=== PATIENT | female | born 1970 | race American Indian/Alaskan Native ===

== ENCOUNTER 2017-02-15 22:52 | Emergency (ER) | payer SELFPAY ==
[2017-02-16] MEDS ORDERED: BOOSTRIX IM ONE (02:50)
[2017-02-16] MEDS ORDERED: CATAPRES PO ONE (02:53)
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
[2017-02-16 04:28] VITALS: BP 155/92
[2017-02-16] MEDS ORDERED: TORADOL IM ONE (04:30)
[2017-02-16] MEDS ORDERED: TORADOL ONE (04:36)
== END 2017-02-16 05:45 | disposition home or self-care (01) ==
LOC: ED 22:52
DX: S05.12XA Contusion of eyeball and orbital tissues, left eye, initial encounter (principal); I10 Essential (primary) hypertension; Z88.6 Allergy status to analgesic agent; Z91.040 Latex allergy status; Z88.8 Allergy status to other drugs, medicaments and biological substances; Z91.018 Allergy to other foods; Y04.8XXA Assault by other bodily force, initial encounter; Y93.89 Activity, other specified; Y92.89 Other specified places as the place of occurrence of the external cause; Y99.8 Other external cause status
CPT/HCPCS: 70450; 70480; 90471; 90715; 96372; 99283; J1885